=== PATIENT | male | born 1990 | race Hispanic/Latino ===

== ENCOUNTER 2022-06-17 21:39 | Emergency (ER) | payer SELFPAY ==
[2022-06-17 21:52] VITALS: BP 129/73
[2022-06-17 22:01] VITALS: BP 115/67
[2022-06-17 23:15] VITALS: BP 109/70
[2022-06-17 23:30] VITALS: BP 107/63
[2022-06-17] MEDS ORDERED: DIPHENHYDRAM50 M2 PO (23:32)
[2022-06-17] MEDS ORDERED: MEDDOSEPAK PO (23:32)
[2022-06-17] MEDS ORDERED: OLOPATADINE OS (23:32)
[2022-06-17 23:37] VITALS: BP 107/63
== END 2022-06-17 23:45 | disposition home or self-care (01) | DRG 916 ==
LOC: ED 21:39
DX: T78.3XXA Angioneurotic edema, initial encounter (principal)